=== PATIENT | female | born 1930 | race Two or more races ===

== ENCOUNTER 2020-05-15 20:15 | Emergency (ER) | payer OTHER ==
[~2020-05-15] VITALS: Ht 167.6 cm; Wt 79.8 kg
--- NOTE | 2020-05-15 20:25 | NUR ---
PT [facility] FROM HOME FOR C/O WITNESSED SYNCOPAL EPISODE . PER REPORT, -TRAUMA OR -FALL. PT REPORTED ABD PAIN,DIARRHEA AND NAUSEA X 2 DAYS BUT DENIES ANY PAIN AT THIS TIME. PT CONNECTED TO THE MONITOR AND POX
--- NOTE | 2020-05-15 20:44 | NUR ---
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
[2020-05-15 20:54] LABS: BASOPHILS % (AUTO) 0.5 % (0.0-2.0); HEMATOCRIT 36 % (33-45); HEMOGLOBIN 11.8 g/dL (11.5-14.8); MEAN CORPUSCULAR HGB CONC 33 g/dl (31.0-36.0); MEAN CORPUSCULAR VOLUME 87 fL (82-100); MONOCYTES # (AUTO) 1.1 /CMM (0.1-1.30); MONOCYTES % (AUTO) 17.1 % (2.0-12.0); NEUTROPHILS # (AUTO) 3.9 /CMM (1.8-8.9); NEUTROPHILS % (AUTO) 62.4 % (43.0-81.0); PLATELET COUNT (AUTO) 183 /CMM (150-450); RED BLOOD CELL COUNT(AUTO) 4.17 MIL/uL (4.0-5.2); WHITE BLOOD COUNT (AUTO) 6.3 K/uL (4.3-11.0)
[2020-05-15] MEDS ORDERED: IV NS 0.9% 1,000 ML BAG IV ONE (21:00)
[2020-05-15 21:01] LABS: CALCIUM, SERUM 9.2 mg/dL (8.5-10.1); CARBON DIOXIDE 25 mmol/L (21-32); CHLORIDE 100 mmol/L (98-107); CREATININE 2.3 mg/dL (0.6-1.3); GLUCOSE 104 mg/dL (74-106); POTASSIUM 3.8 mmol/L (3.5-5.1); SODIUM SERUM 136 mmol/L (136-145); UREA NITROGEN, BLOOD 32 mg/dL (7-18)
--- NOTE | 2020-05-15 21:03 | NUR ---
XRAY AT BEDSIDE
[2020-05-15 21:07] LABS: ALANINE AMINOTRANSFERASE 20 U/L (12-78); ALBUMIN 3.7 g/dL (3.4-5.0); ALKALINE PHOSPHATASE 72 U/L (46-116); ASPARTATE AMINOTRANSFERASE 11 U/L (15-37); BILIRUBIN,DIRECT 0.3 mg/dL (0.0-0.2); TOTAL PROTEIN, SERUM 7.6 g/dL (6.4-8.2)
--- NOTE | 2020-05-15 21:10 | NUR ---
CALLED RD FOR CT
--- NOTE | 2020-05-15 21:15 | NUR ---
Lavell mcgraw in [facility] - 05/15/20 at 2116 by OSEAS CALL[address] LAB FOR CT
--- NOTE | 2020-05-15 21:16 | NUR ---
PT TAKEN TO RADIOLOGY FOR CT
--- NOTE | 2020-05-15 21:31 | NUR ---
PT BACK FROM RADIOLOGY
--- NOTE | 2020-05-15 21:32 | NUR ---
COVID SWAB COLLECTED AND SENT TO LAB
[2020-05-15 21:34] LABS: BAND % (MANUAL) 2 % (0.0-5.0); EOSINOPHILS % (MANUAL) 1 % (0-4); LYMPHOCYTES % (MANUAL) 17 % (16-48); MONOCYTES % (MANUAL) 15 % (0-11.0); NEUTROPHILS % (MANUAL) 65 (42-76)
--- NOTE | 2020-05-15 21:47 | NUR ---
[facility] CALLED PER DR PAINTER.
--- NOTE | 2020-05-15 21:53 | NUR ---
URINE COLLECTED AND SENT TO LAB
--- NOTE | 2020-05-15 21:56 | NUR ---
LEYDA [phone] PT'S DAUGHTER
[2020-05-15 22:10] LABS: BILIRUBIN,URINE Negative (NEGATIVE); BLOOD, URINE Negative Ery/uL (NEGATIVE); COLOR,URINE Yellow (YELLOW); LEUKOCYTE ESTERASE ,URINE Negative (NEGATIVE); NITRITE, URINE Negative (NEGATIVE); PH,URINE 5.5 (5.0-8.0); PROTEIN,URINE Negative (NEGATIVE); UGLUCOSE Negative (NEGATIVE); UROBILINOGEN,URINE 0.2 EU/dL (0.2)
[2020-05-15 22:50] VITALS: BP 116/50
--- NOTE | 2020-05-15 22:56 | NUR ---
TRANSFER INFO: PT GOING TO [facility], ACCEPTED BY DR REDMOND, ETA 0000 HOURS, RN FOR REPORT [phone]
--- NOTE | 2020-05-16 00:25 | NUR ---
ATTEMPTED TO GIVE REPORT FOR THE 2ND TIME
--- NOTE | 2020-05-16 00:30 | NUR ---
REPORT GIVEN TO MONY ROSE RN FOR LALO
--- NOTE | 2020-05-16 01:05 | NUR ---
REPORT GIVEN TO EMS. PT STABLE FOR TRANSFER [facility]
== END 2020-05-16 01:07 | disposition short-term general hospital (02) ==
LOC: ER 20:17
DX: R55 Syncope and collapse (principal); E86.0 Dehydration; N17.9 Acute kidney failure, unspecified; Z20.828 Contact with and (suspected) exposure to other viral communicable diseases; Z86.73 Personal history of transient ischemic attack (TIA), and cerebral infarction without residual deficits; I11.9 Hypertensive heart disease without heart failure; I25.10 Atherosclerotic heart disease of native coronary artery without angina pectoris; Z95.5 Presence of coronary angioplasty implant and graft; Z90.710 Acquired absence of both cervix and uterus; R94.31 Abnormal electrocardiogram [ECG] [EKG]; K76.9 Liver disease, unspecified; M41.9 Scoliosis, unspecified
CPT/HCPCS: 36415; 70450; 71045; 74176; 80048; 80076; 81001; 82962; 83735; 84484; 85007; 85025; 85730; 87426; 93005; 96360; 99285; C9803; J7030